=== PATIENT | female | born 1940 | race Caucasian/White ===

== ENCOUNTER 2021-07-03 20:54 | Emergency (ER) | payer MEDICARE, OTHER ==
[~2021-07-03 20:54] MED LIST: CLEOCIN300 MG PO
[2021-07-03] MEDS ORDERED: KEFLEX250 MG PO (22:30)
== END 2021-07-03 22:45 | disposition home or self-care (01) ==
LOC: FER 20:54
DX: S91.115A Laceration without foreign body of left lesser toe(s) without damage to nail, initial encounter (principal); E11.9 Type 2 diabetes mellitus without complications; I10 Essential (primary) hypertension; J44.9 Chronic obstructive pulmonary disease, unspecified; I48.91 Unspecified atrial fibrillation; Z87.891 Personal history of nicotine dependence; Z79.01 Long term (current) use of anticoagulants; Z79.899 Other long term (current) drug therapy; W22.8XXA Striking against or struck by other objects, initial encounter
CPT/HCPCS: 99282